=== PATIENT | male | born 2000 | race Two or more races ===

== ENCOUNTER 2025-08-21 20:02 | Emergency (ER) | payer SELFPAY ==
[~2025-08-21] VITALS: Ht 165.1 cm; Wt 59.0 kg
[2025-08-21] MEDS ORDERED: LORAZEPAM 1 MG TABLET ONE (20:20)
[2025-08-21] MEDS: LORAZEPAM 1 MG TABLET PO ONE (20:23)
[2025-08-21 21:35] LABS: PLATELET COUNT (AUTO) 329 K/uL (150-450); RED BLOOD CELL COUNT(AUTO) 5.08 MIL/uL (4.5-6.0); RED CELL DISTRIBUTION WIDTH 13.6 % (11.5-15.0); WHITE BLOOD COUNT (AUTO) 5.3 K/uL (4.3-11.0)
[2025-08-21 21:43] LABS: CALCIUM, SERUM 9.6 mg/dL (8.5-10.1); CREATININE 1.0 mg/dL (0.6-1.3); SODIUM SERUM 139.0 mmol/L (136-145); UREA NITROGEN, BLOOD 9.0 mg/dL (7-18)
[2025-08-21 21:49] LABS: ASPARTATE AMINOTRANSFERASE 19.0 U/L (15-37); TOTAL PROTEIN, SERUM 7.7 g/dL (6.4-8.2)
[2025-08-22 06:44] VITALS: BP 132/70; TEMP 98.2; O2SAT 98
== END 2025-08-22 06:15 | disposition home or self-care (01) ==
LOC: ER 22:01
DX: F41.0 Panic disorder [episodic paroxysmal anxiety] (principal); F12.90 Cannabis use, unspecified, uncomplicated; R68.2 Dry mouth, unspecified
CPT/HCPCS: 36415; 80048-TC; 80076-TC; 85025-TC